=== PATIENT | female | born 1970 | race Caucasian/White ===

== ENCOUNTER → 2024-02-22 16:02 | Outpatient (REF) | payer BC, SELFPAY | LOC: HWRCS 16:02 | PROVIDERS: ATTENDING PHYSICIAN Nurse Practitioner; FAMILY PHYSICIAN Family Medicine | DX: I77.810 Thoracic aortic ectasia (principal); I25.10 Atherosclerotic heart disease of native coronary artery without angina pectoris; D50.9 Iron deficiency anemia, unspecified | CPT/HCPCS: 93306 ==

== ENCOUNTER → 2024-03-16 07:17 | Outpatient (REF) | payer BC, SELFPAY | LOC: WDC 07:17 | PROVIDERS: ATTENDING PHYSICIAN Family Medicine | DX: Z12.31 Encounter for screening mammogram for malignant neoplasm of breast (principal) | CPT/HCPCS: 77063; 77067 ==

== ENCOUNTER 2024-07-14 22:01 | Emergency (ER) | payer BC, SELFPAY ==
[2024-07-14 22:04] VITALS: BP 160/115
[2024-07-14 22:08] VITALS: BP 160/115
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
[2024-07-15 01:18] VITALS: BP 123/78
== END 2024-07-15 01:19 | disposition home or self-care (01) ==
LOC: EMR 22:01
PROVIDERS: EMERGENCY PHYSICIAN Emergency Medicine; FAMILY PHYSICIAN Family Medicine
DX: S20.219A Contusion of unspecified front wall of thorax, initial encounter (principal); S63.501A Unspecified sprain of right wrist, initial encounter; V43.52XA Car driver injured in collision with other type car in traffic accident, initial encounter; Y92.410 Unspecified street and highway as the place of occurrence of the external cause; J45.909 Unspecified asthma, uncomplicated; I25.10 Atherosclerotic heart disease of native coronary artery without angina pectoris; I10 Essential (primary) hypertension; Z82.49 Family history of ischemic heart disease and other diseases of the circulatory system; Z90.49 Acquired absence of other specified parts of digestive tract
CPT/HCPCS: 99283; 29125; 71101; 73110; 73130

== ENCOUNTER 2025-01-19 10:36 | Emergency (ER) | payer BC, SELFPAY ==
[2025-01-19] VITALS (12 sets, daily range): BP systolic 132–186; BP diastolic 72–99; PULSE 71; BMI 34.7
--- NOTE | 2025-01-19 10:57 | ED.GENMED ---
History of Present Illness
<LAURITA Moise - Last Filed: 01/20/25 18:03>
General
Chief Complaint: Dizziness
Source: patient
Exam Limitations: none
Time Seen by Provider: 01/19/25 10:57
Nursing documentation reviewed up to this point in time: agreed with
History of Present Illness
History of Present Illness:
Patient is a 54-year-old female with past medical history of CAD, CABG x 2 in 2021, hypertension hyperlipidemia on aspirin who presents to the ER for evaluation of dizziness. Patient reports around 3 weeks ago she had what she thought was
positional vertigo. She described feeling room spinning with changing position in bed etc. She did feel heavy head feeling as well. Shortly after that she developed a head cold and has had some congestion and decreased hearing from her left ear.
This a.m. she was sitting at her desk and her head felt heavy and she became dizzy and feels off balance with position change. She does not feel that the room is actually spinning now however dizziness occurs with changing position.
She denies any speech difficulty denies any visual deficit. Denies any upper or lower extremity numbness tingling or weakness.
Past History
<LAURITA Moise - Last Filed: 01/20/25 18:03>
Past History
ED Past Medical History: Asthma, CAD, HTN and Other
ED Past Surgical History: Appendectomy and
Family History
Family History: CAD
Review of Systems
<LAURITA Moise - Last Filed: 01/20/25 18:03>
Review of Systems
Allergies reviewed?: Yes
All Other Systems: ROS reviewed and negative except as documented in HPI and ROS
Constitutional: Reports no symptoms
Phy Exam
<LAURITA Moise - Last Filed: 01/20/25 18:03>
General Physical Exam
General Presentation: no apparent distress
General age: appears stated age
General Skin: warm and dry
General Habitus: normal
General Mental: alert
General Hydration: appears well hydrated
ENT Exam
ENT Exam: EOMI and TM's normal
Eye Exam
Eye Exam: PERRL, EOMI and other (nystagmus mild to the right )
Eye Exam General: PERRL: bilateral and EOM intact: bilateral
Pupil Exam: Bilateral: round and reactive
Cardiovascular Exam
Cardiovascular Exam: regular rate/rhythm, no murmur and normal peripheral pulses
Pulmonary Exam
Pulmonary Exam: lungs clear and no respiratory distress
Neurological Exam
Neurological Exam: alert, oriented x3, no motor deficits, no sensory deficits, speech normal and cerebellum intact
Cerebellar
Cerebellar Function: normal finger to nose
Musculoskeletal Exam
Musculoskeletal Exam: full ROM
Skin Exam
Skin Exam: normal color and warm/dry
Psychiatric Exam
Psychiatric Exam: normal mood/affect
Course
<LAURITA Moise - Last Filed: 01/20/25 18:03>
Orders/Labs/Results
Orders:
Orders
01/19/25 10:48
EKG [Electrocardiogram (*1)] Urgent
Reason for Study: Vertigo / Dizzy
EKG- Treatment ONCE
01/19/25 11:03
Cardiac Monitoring- Treatment ONCE
IV Insert/Care/Rem.- Treatment PRN
01/19/25 11:12
CT Head W/o Iv Contrast Urgent
Comment:
Reason For Exam: vertigo
01/19/25 11:13
Physical Therapy Consult [Pt Eval And Treat] Urgent
Treatment: vertigo eval
Activity Level: As Tolerated
01/19/25 11:30
Complete Blood Count/With Diff Urgent
Comprehensive Metabolic Panel Urgent
01/19/25 11:44
0.9% Sodium Chloride 1000 ml [Nss] 1,000 ml IV BOLUS
Ondansetron Injectable [Zofran] 4 mg IV NOW STA
01/19/25 12:32
diazePAM [Valium Injection] 5 mg IV NOW STA
01/19/25 13:38
CT Temporal-iac W/o Iv Contras Urgent
Comment:
Reason For Exam: vertigo
01/19/25 13:42
Dexamethasone Sod Phosphate [Decadron] 10 mg IV NOW STA
Diphenhydramine [Benadryl] 25 mg IV NOW STA
Metoclopramide [Reglan] 10 mg IV NOW STA
Abnormal Lab Results
01/19/25
11:30
WBC 11.4 H 10^3/uL
(4.8-10.8)
MCV 77.1 L fL
(81.0-99.0)
MCH 25.2 L pg
(27.0-31.0)
MCHC 32.7 L g/dL
(33.0-37.0)
RDW 15.9 H %
(11.5-14.5)
Abs Immat Gran (auto) 0.1 H 10^3/uL
(0-0.05)
Absolute Neuts (auto) 8.9 H 10^3/uL
(1.4-6.5)
Neutrophils % 77.6 H %
(42.2-75.2)
Lymphocytes % 16.5 L %
(20.5-51.1)
Creatinine 0.5 L mg/dL
(0.6-1.0)
Glucose 159 H mg/dl
(70-99)
01/19/25 11:30
01/19/25 11:30
Vital Signs
Initial and Last Documented VS:
Initial Vital Signs
Temp Pulse Resp BP Pulse Ox
97.7 F 57 18 186/99 99
04/18/25 10:45 01/19/25 10:45 01/19/25 10:45 01/19/25 10:45 01/19/25 10:45
Last Documented Vital Signs
Temp Pulse Resp BP Pulse Ox
97.7 F 82 11 140/95 97
01/19/25 10:45 01/19/25 18:23 01/19/25 18:23 01/19/25 18:23 01/19/25 18:23
<John Cantu PA-C - Last Filed: 01/19/25 19:56>
Orders/Labs/Results
Orders:
Orders
01/19/25 10:48
EKG [Electrocardiogram (*1)] Urgent
Reason for Study: Vertigo / Dizzy
EKG- Treatment ONCE
01/19/25 11:03
Cardiac Monitoring- Treatment ONCE
IV Insert/Care/Rem.- Treatment PRN
01/19/25 11:12
CT Head W/o Iv Contrast Urgent
Comment:
Reason For Exam: vertigo
01/19/25 11:13
Physical Therapy Consult [Pt Eval And Treat] Urgent
Treatment: vertigo eval
Activity Level: As Tolerated
01/19/25 11:30
Complete Blood Count/With Diff Urgent
Comprehensive Metabolic Panel Urgent
01/19/25 11:44
0.9% Sodium Chloride 1000 ml [Nss] 1,000 ml IV BOLUS
Ondansetron Injectable [Zofran] 4 mg IV NOW STA
01/19/25 12:32
diazePAM [Valium Injection] 5 mg IV NOW STA
01/19/25 13:38
CT Temporal-iac W/o Iv Contras Urgent
Comment:
Reason For Exam: vertigo
01/19/25 13:42
Dexamethasone Sod Phosphate [Decadron] 10 mg IV NOW STA
Diphenhydramine [Benadryl] 25 mg IV NOW STA
Metoclopramide [Reglan] 10 mg IV NOW STA
Abnormal Lab Results
01/19/25
11:30
WBC 11.4 H 10^3/uL
(4.8-10.8)
MCV 77.1 L fL
(81.0-99.0)
MCH 25.2 L pg
(27.0-31.0)
MCHC 32.7 L g/dL
(33.0-37.0)
RDW 15.9 H %
(11.5-14.5)
Abs Immat Gran (auto) 0.1 H 10^3/uL
(0-0.05)
Absolute Neuts (auto) 8.9 H 10^3/uL
(1.4-6.5)
Neutrophils % 77.6 H %
(42.2-75.2)
Lymphocytes % 16.5 L %
(20.5-51.1)
Creatinine 0.5 L mg/dL
(0.6-1.0)
Glucose 159 H mg/dl
(70-99)
01/19/25 11:30
01/19/25 11:30
Vital Signs
Initial and Last Documented VS:
Initial Vital Signs
Temp Pulse Resp BP Pulse Ox
97.7 F 57 18 186/99 99
01/19/25 10:45 01/19/25 10:45 01/19/25 10:45 01/19/25 10:45 01/19/25 10:45
Last Documented Vital Signs
Temp Pulse Resp BP Pulse Ox
97.7 F 82 11 140/95 97
01/19/25 10:45 01/19/25 18:23 01/19/25 18:23 01/19/25 18:23 01/19/25 18:23
<LAURITA Moise - Last Filed: 01/20/25 18:03>
MDM/Problems Addressed
MDM/Problems Addressed:
Patient is a 54-year-old female who had cold symptoms 3 weeks ago since then has had decreased hearing out of her left ear but started with vertigo. She had an episode 3 weeks ago and then today again while sitting at her desk. Patient came in
very nauseous, mild nystagmus to the right.
Patient was evaluated by physical therapy no relief with [place]. Patient was given Valium with some improvement however still with dizziness and vomiting. CT scan nothing acute however there is a high riding jugular bulb on the left with
patient's symptoms as reviewed with radiology will obtain CAT scan of temporal bones without contrast.
Case d/c ED physician will try Reglan Benadryl and Decadron
1500:Awaiting CT of temporal bones.
Patient reports very slight improvement fasting at this time will possibly need admission for intractable vertigo will reevaluate after CAT scan .
care of patient this time transferred to [facility]
<LAURITA Moise - Last Filed: 01/20/25 18:03>
*Critical Care Note
Total Time (30-74mins, 75-104mins- exclusive of procedures): Not Applicable
<John Cantu PA-C - Last Filed: 01/19/25 19:56>
Patient Management
Social determinants of health affecting care: Living situation and Strong social support
Escalation/DeEscalation of care consider admission/obs:
4 PM: Received patient in signout pending CT scan results and reevaluation of patient's vertigo/dizziness.
5:15 PM: Patient CT of the temporal bone shows high riding left jugular bulb. Patient states that her vertigo seems to be better although still has a mild headache. She ultimately would like to decide with her friend about going home as she
prefers to be discharged home.
6 PM: Patient ambulated in the halls of the ER without any evidence for ataxia and she states she feels comfortable being discharged home. She was also able to tolerate p.o. liquids. I will send the patient home with prescriptions for a Medrol
Dosepak, Valium and Antivert which can be used as needed for vertigo. Patient was also provided with a prescription for outpatient vestibular therapy. We discussed return precautions to the ER and patient feels comfortable with this plan.
ED Attending Note
<LAURITA Moise - Last Filed: 01/20/25 18:03>
-
Portions of this chart may have been created with voice recognition software.� Occasional wrong word or��sound alike� substitutions may have occurred due to the inherent limitations of voice recognition software.
Discharge Plan
Departure
Patient Disposition: Home (Routine Discharge)
Date of Disposition: 01/19/25
Time of Disposition: 18:25
Patient with high blood pressure during this ER visit?: Yes
Discharge Problem:
Vertigo
Instructions: Vertigo (a Type of Dizziness) (DC)
Prescriptions:
New
meclizine 25 mg tablet
25 mg PO BID PRN (Reason: dizziness) Qty: 15 0RF
diazepam [Valium] 5 mg tablet
5 mg PO BID PRN (Reason: dizziness) Qty: 10 0RF
methylprednisolone [Medrol (Itz)] 4 mg tablets,dose pack
4 mg PO DIRECTED Qty: 21 0RF
No Action
fluticasone propion-salmeterol 1 DISK blister with device
1 puff inhalation R BID
albuterol sulfate [Proventil HFA] 90 MCG/PUFF HFA aerosol inhaler
2 puff inhalation Q4HPRN PRN (Reason: SOB)
aspirin 81 MG tablet,delayed release (DR/EC)
81 mg PO DAILY
cholecalciferol (vitamin D3) 2,000 UNITS tablet
2,000 units PO DAILY
multivitamin with folic acid [Tab-A-Shirley] 1 TABLET tablet
1 tab PO DAILY
acetaminophen 325 MG tablet
650 mg PO Q6HPRN PRN (Reason: mild pain, fever, headache) 0RF
metoprolol succinate 25 MG tablet extended release 24 hr
25 mg PO DAILY Qty: 30 3RF
oxycodone 5 MG tablet
5 mg PO Q6HPRN PRN (Reason: moderate - severe pain) Qty: 28 0RF
ferrous sulfate [Feosol] 325 MG tablet
325 mg PO DAILY Qty: 1 0RF
ascorbic acid (vitamin C) 500 MG capsule
500 mg PO DAILY Qty: 1 0RF
rosuvastatin 40 MG tablet
40 mg PO QPM Qty: 30 3RF
Referrals:
Gayle Espinoza MD [Family Provider] -
Interventions
Interventions:
*Risk Screen - Suicide Last Done: 01/19/25 10:47
*General Assessment Last Done: 01/19/25 10:47
*Neglect/Abuse Screening Last Done: 01/19/25 10:47
*ED- Fall Risk Assessment Last Done: 01/19/25 18:48
*ED COVID-19 Vaccine History Last Done: 01/19/25 10:47
*Nursing Disposition Last Done: 01/19/25 18:48
ED- Neurological Assessment Last Done: 01/19/25 11:34
ED- Cardiac Assessment Last Done: 01/19/25 11:34
ED Swallowing Screen Last Done: 01/19/25 17:20
Discharge Date and Time
Discharge Date/Time: 01/19/25 18:49
Print Language: PASHTO
--- NOTE | 2025-01-19 11:03 | EDRN ---
Tessie Diaz DUPLICATING MACHINE SERVICER in room w/ pt at this time.
[2025-01-19 11:39] LABS: % Basophils 0.7 % (0-2); % Immature Granulocytes 0.4 % (0-0.5); % Lymphocytes 16.5 % (20.5-51.1); % Monocytes 3.8 % (1.7-9.3); % Neutrophils 77.6 % (42.2-75.2); Absolute Basophils 0.1 10^3/uL (0-0.2); Absolute Eosinophils 0.1 10^3/uL (0-0.7); Absolute Immature Granulocytes 0.1 10^3/uL (0-0.05); Absolute Lymphocytes 1.9 10^3/uL (1.2-3.4); Absolute Monocytes 0.4 10^3/uL (0.1-0.6); Absolute Neutrophils 8.9 10^3/uL (1.4-6.5); Hematocrit 40.4 % (37.0-47.0); Hemoglobin 13.2 g/dL (12.0-16.0); Mean Corp Hgb Conc. 32.7 g/dL (33.0-37.0); Mean Corpuscular Hgb 25.2 pg (27.0-31.0); Mean Corpuscular Volume 77.1 fL (81.0-99.0); Mean Platelet Volume 10.1 fL (7.4-10.4); Nucleated Red Blood Cells % 0 %; Platelet Count 339 10^3/uL (130-400); Red Blood Cell Count 5.24 10^6/uL (4.20-5.40); Red Cell Dist. Width 15.9 % (11.5-14.5); White Blood Cell Count 11.4 10^3/uL (4.8-10.8)
--- NOTE | 2025-01-19 11:39 | EDRN ---
Tessie sotelo NP TT'd about N/V as pt is now vomiting.
[2025-01-19] MEDS: ZOFRAN 4 MG IV (11:53)
--- NOTE | 2025-01-19 11:53 | EDRN ---
PT in room w/ pt. Tessie Diaz NP was in to see pt as well.
[2025-01-19 11:55] LABS: ALT (SGPT) 25 U/L (0-35); AST (SGOT) 25 U/L (14-36); Albumin 4.5 g/dl (3.5-5.0); Alkaline Phosphatase 113 U/L (38-126); Blood Urea Nitrogen 12 mg/dl (7-17); Calcium 9.4 mg/dl (8.4-10.2); Carbon Dioxide 23 mmol/L (22-30); Chloride 105 mmol/L (98-107); Estimated Creatinine Clearance > 125 ml/min; Glucose 159 mg/dl (70-99); Potassium 4.2 mmol/L (3.5-5.1); Sodium 139 mmol/L (135-145); Total Bilirubin 0.7 mg/dl (0.2-1.3); Total Protein 7.1 g/dl (6.3-8.2); eGFR > 60.00
--- NOTE | 2025-01-19 12:14 | EDRN ---
PT still in room w/ pt. Pt stated she is feeling better.
--- NOTE | 2025-01-19 12:27 | EDRN ---
Sent Tessie Diaz CAR RECORD CLERK a TT about medication w/ something as pt is still very symptomatic and may not tolerate CT. Also info obtained from PT exam included.
[2025-01-19] MEDS: NSS 1000 IV (12:28)
[2025-01-19] MEDS: VALIUM INJECTION 5 MG IV (12:49)
--- NOTE | 2025-01-19 13:39 | EDRN ---
Tessie Diaz HOSPICE CARE SALES CONSULTANT in room w/ pt at this time.
[2025-01-19] MEDS: REGLAN 10 MG IV (14:21)
[2025-01-19] MEDS: DECADRON 10 MG IV (14:21)
[2025-01-19] MEDS: BENADRYL 25 MG IV (14:21)
--- NOTE | 2025-01-19 16:45 | EDRN ---
Pt states she remains w/ dizziness w/ motion. Pt states she does though feel 60% better at this time. No vomiting since earlier.
--- NOTE | 2025-01-19 17:27 | EDRN ---
Pt administered water to drink w/ instructions to drink slowly. Pt will press call light when she think she can trial getting OOB and walking.
--- NOTE | 2025-01-19 18:13 | EDRN ---
Pt ambulated in room w/ tech w/out difficulty. Connie ZAVALA was informed.
--- NOTE | 2025-01-19 18:21 | EDRN ---
Pt's friend just returned at this time.
--- NOTE | 2025-01-19 18:24 | EDRN ---
Pt states she would prefer discharge at this time as she is feeling better after conversing w/ her friend (who is advising pt to stay). Connie ZAVALA was informed.
== END 2025-01-19 18:49 | disposition home or self-care (01) ==
LOC: EMR 10:36
PROVIDERS: Nurse Practitioner; EMERGENCY PHYSICIAN Emergency Medicine; FAMILY PHYSICIAN Family Medicine
DX: R42 Dizziness and giddiness (principal); I25.10 Atherosclerotic heart disease of native coronary artery without angina pectoris; I10 Essential (primary) hypertension; E78.00 Pure hypercholesterolemia, unspecified; J45.909 Unspecified asthma, uncomplicated; Z82.49 Family history of ischemic heart disease and other diseases of the circulatory system; Z90.49 Acquired absence of other specified parts of digestive tract; Z95.1 Presence of aortocoronary bypass graft
CPT/HCPCS: 99284; 96374; 96375; 96361; 70450; 70480; 80053; 85025; 93005

== ENCOUNTER → 2025-03-01 07:25 | Outpatient (REF) | payer BC, SELFPAY | LOC: HWRAD 07:25 | PROVIDERS: ATTENDING PHYSICIAN Internal Medicine Cardiovascular Disease; FAMILY PHYSICIAN Family Medicine | DX: E78.5 Hyperlipidemia, unspecified (principal) | CPT/HCPCS: 71250 ==

== ENCOUNTER → 2025-03-24 07:21 | Outpatient (REF) | payer BC, SELFPAY | LOC: WDC 07:21 | PROVIDERS: ATTENDING PHYSICIAN Family Medicine | DX: Z12.31 Encounter for screening mammogram for malignant neoplasm of breast (principal) | CPT/HCPCS: 77063; 77067 ==